=== PATIENT | male | born 1980 | race Caucasian/White ===

== ENCOUNTER 2016-09-05 18:46 | Emergency (ER) | payer MEDICARE, OTHER ==
--- OUTSIDE RECORDS SUMMARY | 2016-09-05 21:44 | XMS REPORT | Continuity of Care Document ---
:1980 Author Organization [facility] ([facility]) Address [address] [place] [address] Phone [phone] Care Team Providers Name Role Phone Emili Sullivan Primary Care Provider [phone] Source Comments This disclosure is being made pursuant to the Care Everywhere program, applicable federal and state laws, and may not contain all informaitonavailable regarding this patient.[facility] ([facility]) Active Allergies and Adverse Reactions Allergen Noted Date Severity Reactions Comments Cephalosporins 08/01/2011 Rash Ciprofloxacin Hcl 05/19/2011 Medium Rash One dose of cipro, total body mobiliform rash. Derm evaluated. Also some desaturations, unclear if associated with reaction vs other cause. Cotrim Double-Strength 09/18/2014 OTHER Unclear documentation - fevers, hypotension, diffuse erythema after received a 5 day course. Reaction occurred 1-2 h after administration of ertapenem and vancomycin. 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 Received 5 days of bactrim prior to and vancomycin 1 hour prior to (both bactrim and vancomycin had been given inpast). Furosemide 06/08/2013 Rash Haloperidol Dystonic reaction Penicillins 08/01/2011 Eosinophilia,Rash, Renal failure Vancomycin 09/18/2014 OTHER Unclear documentation - fevers, hypotension, diffuse erythema on day administered. Received 5 days of bactrim prior to and ertapenem 1 hour after. Current Medications Prescription Sig. Disp. Refills Start Date End Date Status LORazepam 2 mg/mL Take 0.5 mL (1 mg 30 mL 0 04/21/2016 Active solution total) by mouth 2 times daily. fluvoxaMINE 100 mg Take 3 tablets (300 90 tablet 0 04/22/2016 Active tablet mg total) by mouth daily. losartan 2.5 mg/mL Take 20 mL (50 mg 1800 mL 3 06/23/2016 Active suspension total) by mouth daily. paliperidone Inject 1.5 mL (234 mg 1 Syringe 11 07/30/2016 Active palmitate (INVEGA total) SUSTENNA) 234 intramuscularly every mg/1.5 mL injection month. 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 This duplication affects 2 known genes including adenylate cyclase activating polypeptide 1 (ADCYAP1, aka PACAP), which is a hypophysiotropic hormone that also functions as a neurotransmitter and neuromodulator. ADCYAP1 has been reported to be associated with a number of neuropsychiatric conditions as well as playing a role inmetabolism , body temperature regulation, and food intake (Franklin R et al, Mol Psychiatry.12(11):1026-32. 2007; Bhanu S J, et al J Pharmacol Sci.107(1):41- 48. 2008)." H/O necrotizing fasciitis 09/23/2013 Overview: Formatting of this note may be different from the original. 2008 - Necrotizing soft tissue infection to the left thigh and groin s/p thigh resection and skin grafting (see procedure notes 02/20/2009 and 03/16/2009) 12/04/10 - [facility] note has chronic lymphedema diagnosed. Encouraged compression stockings. Referred him to Dr. Mantilla of Plastic Surgery. Said, "He should continue on the lifelong suppressive antibiotic therapy." also made a referral to the [facility] for further management. bid oral penicillin, Augmentin 875 mg BID was used. 02/03/2011 - [facility] note: they thought he "would benefit from excision of the redundant soft tissue" Gave family time to think about this. 04/15/2011 - INFECTIOUS DISEASE note: Dr. Evelin sOeguera "recommended that the patient be treated with vancomycin, as well as an agent against Strep, such as penicillin, ampicillin, or cefazolin." and be admitted to he hospital for cellulitis w/ h/o methicillin-resistant Staphylococcus aureus and vancomycin-resistant enterococci. 04/2011 - admitted for possible cellulitis which turned out to be likely drug reaction to prophylactic antibiotics. Infectious disease determined no more antibiotics required at this time. 08/01/2011 - INFECTIOUS DISEASE consult note: saw him for possible pneumonia and scrotal pain. The later determined that he had (bilateral epididymitis seen on u/s). This more likely represents infec tions with gram positive organisms, including the scrotum. Current severity is mild based on exam. Would recommend continuing linezolid therapy. Pulmonary issues possibly due to hypersensitivity pneumonitis, per pulmonary consultants. 12/14/2013 - DERMATOLOGY consult note: Their physical exam was as follows: This is a well developed, obese male in no acute distress. Skin exam included the buttocks, legs, lower back and abdomen. - - There is a geometric, erythematous patch that extends from the superior portion of the buttocks, across the gluteal cleft, down to the proximal, medial posterior thighs. There are scattered hemorrha gic crusts within this patch and skin is quite xerotic -- There is a shallow erosion on the left proximal, posterior thigh. Impression: Contact dermatitis on buttocks and posterior proximal thighs, al lergic versus irritant and possibly due to toilet seat. Recommendations: 1. Clinical findings discussed with the patient and the primary team caring for him. 2. Start triamcinolone 0.1% cream on affec ketty skin twice daily for up to 14 days and then 2-3 days a week as needed. 3. Could make a cream or ointment, such as Aquaphilic or Vaseline available to patient to apply when skin is itchy or bothers ome 4. It is unclear whether contact dermatitis is allergic versus irritant but geographic nature of dermatitis makes contact with toilet seat most likely etiology. Further work-up could be considered , such as patch testing for skin allergies, if rash becomes a chronic problem. OCD (obsessive compulsive disorder) 09/07/2013 Autism spectrum disorder 01/29/2012 Overview: As a child he had delayed speech, repetite movements (rocking), significant social impairment which lead to a dx of ASD at age 6. 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 08/30/2015 Superficial skin infection 12/26/2014 02/23/2015 VIANCA (acute kidney injury) 09/22/2014 09/22/2014 Lymphedema of left leg 09/21/2014 03/02/2015 Lactic acid acidosis 09/15/2014 09/18/2014 Iatrogenic hypotension 09/15/2014 09/22/2014 Fever and chills 09/14/2014 09/18/2014 Left leg cellulitis 09/09/2014 09/22/2014 Diabetes mellitus type 2, diet-controlled 07/05/2014 04/14/2016 Overview: Glucose 10/06: 82 Skin ulcer of left calf, limited to breakdown of skin 06/06/2014 03/02/2015 Overview: History of recurrent cellulitis of left lower extremity Viral conjunctivitis 01/22/2014 07/03/2014 Influenza 06/21/2013 07/05/2014 Hypoxia 06/21/2013 06/22/2013 Elevated LFTs 06/21/2013 06/22/2013 Fatty liver 06/21/2013 07/05/2014 Hypoventilation associated with obesity 06/21/2013 07/05/2014 Shortness of breath 06/19/2013 06/22/2013 Pneumonia, organism unspecified 06/19/2013 06/21/2013 Hypoxemia 06/19/2013 06/22/2013 Agitation 01/28/2012 10/11/2012 Shortness of breath 08/11/2011 10/11/2012 Pervasive developmental disorder 08/06/2011 06/08/2013 Pneumonia 07/29/2011 10/11/2012 Hypoxia 07/29/2011 10/11/2012 Pulmonary edema 07/29/2011 10/11/2012 Orchitis and epididymitis 07/29/2011 07/05/2014 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 10/11/2012 Morbilliform rash 06/02/2011 10/11/2012 Obstructive sleep apnea (adult) (pediatric) 04/18/2011 10/11/2012 Cellulitis 05/19/2010 10/11/2012 Acute respiratory failure 02/25/2009 10/11/2012 Asperger's disorder 02/25/2009 01/29/2012 Renal dialysis 02/25/2009 10/11/2012 Necrotizing fasciitis 02/21/2009 10/11/2012 Seizure 02/21/2009 07/11/2014 Acute renal failure 02/21/2009 10/11/2012 Hyponatremia 02/21/2009 10/11/2012 Most Recent Encounters Date Type Specialty Providers Description 08/26/2016 Office Visit [facility] Mindi Garcia PA-C Chief Comp: Patient Reported Reason For Visit 08/22/2016 Office Visit [facility] Mindi Garcia PA-C Chief Comp: Patient Reported Reason For Visit 08/22/2016 Telephone Psychiatry Mindi Garcia PA-C Dx: Psychosis, unspecified psychosis type (Primary Dx) 08/01/2016 Office Visit Psychiatry Yosi Childs Jr., Chief Comp: Patient MD Reported Reason For Visit 08/01/2016 Office Visit [facility] Mindi Garcia PA-C Chief Comp: Patient Reported Reason For Visit 07/30/2016 Orders Only Psychiatry Mindi Garcia PA-C Dx: Psychosis, unspecified psychosis type (Primary Dx) 07/10/2016 Office Visit Psychiatry Gregorio Shi MD Dx: Autism spectrum disorder (Primary Dx) 07/10/2016 Office Visit [facility] Mindi Garcia PA-C Dx: Autism spectrum disorder (Primary Dx) 06/23/2016 Orders Only Psychiatry Mindi Garcia PA-C Dx: Essential hypertension (Primary Dx) Immunizations Name Dates Previously Given Next Due Influenza, quadrivalent PF 03/16/2015 Influenza, unspecified 03/29/2009 Novel Inluenza H1N1, unspecified 05/18/2009 Social History Tobacco Use Types Packs/Day Years Used Date Never Smoker Smokeless Tobacco: Never Used Tobacco Cessation:Counseling Given: Yes Comments: Alcohol Use Drinks/Week oz/Week Comments No Last Filed Vital Signs Vital Sign Reading Time Taken Blood Pressure 154/107 07/10/2016 1:34 PM [facility] Pulse 116 07/10/2016 1:34 PM [facility] Temperature 36.8 C (98.2 F) 04/21/2016 8:00 AM [facility] Respiratory Rate 16 04/21/2016 8:00 AM [facility] Height 1.778 m (5' 10") 04/27/2015 6:02 AM [facility] Weight 195.7 kg (431 lb 7 oz) 07/10/2016 1:33 PM [facility] Body Mass Index 61.91 07/10/2016 1:33 PM [facility] Oxygen Saturation 94% 04/21/2016 8:00 AM [facility] Plan of Care Patient Goal Type Goal Lifestyle Encourage healthy lifestyle Health Maintenance Due Date Last Done Comments Hepatitis B Vaccine (1 of 3 - 1980 Primary Series) Tdap Vaccine 1992 DIABETIC: Microalbumin 10/10/1999 MMR Vaccine 10/10/1999 Td Vaccine 10/10/1999 Varicella Vaccine (1 of 2 - 10/10/1999 Adult - No Evidence of Immunity) Pneumococcal Vaccine (1 of 1 2000 - PPSV23) DIABETIC: Foot Exam 11/05/2010 DIABETIC: Retinal Eye Exam 11/05/2010 DIABETIC: Hemoglobin A1C 08/13/2016 02/14/2016, Additional history exists 08/04/2015, 02/19/2015 DIABETIC: Cholesterol 02/13/2017 02/14/2016, Additional history exists 08/04/2015, 01/31/2015 Diabetic: Hdl 02/13/2017 02/14/2016, Additional history exists 08/04/2015, 01/31/2015 Diabetic: Ldl 02/13/2017 02/14/2016, Additional history exists 08/04/2015, 01/31/2015 DIABETIC: Triglycerides 02/13/2017 02/14/2016, Additional history exists 08/04/2015, 01/31/2015 Influenza Vaccine: Seasonal Completed 03/16/2015, 03/29/2009 Results from Last 3 Months Not on file
[2016-09-05] MEDS ORDERED: LORazepam 2 MG/ML DISP.SYRIN IM ONE (22:00)
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
[2016-09-05] MEDS ORDERED: LORazepam 2 MG/ML DISP.SYRIN ONE (22:09)
[2016-09-05 22:22] LABS: Hematocrit 41.7 % (42.0-52.0); Hemoglobin 13.7 gm/dL (13.5-18.0); Mean Cell Volume 82.9 fl (78-100); Mean Corpuscular Hemoglobin 27.2 pg (27-31); Mean Corpuscular Hgb Conc 32.9 g/dl (32-36); Mean Platelet Volume 10.4 fl (6.0-9.5); Neutrophil # 5.9 K/mm3 (1.3-6.0); Neutrophil % 65.5 % (42-75.0); Platelet Count 182 K/mm3 (150-450); Red Blood Count 5.03 M/mm3 (4.7-6.0)
[2016-09-05 22:46] LABS: ALT 36 U/L (19-67); AST 18 U/L (0-48); Alkaline Phosphatase * 64 U/L (50-170); Anion Gap 12.7 mmol/L (6.8-13.8); Bilirubin, Total 0.4 mg/dL (0.0-1.1); Blood Urea Nitrogen 17 mg/dL (6-23); Calcium * 8.2 mg/dL (7.9-10.9); Carbon Dioxide 27.3 mmol/L (24-32.6); Chloride 105 mmol/L (97-106); Glucose * 125 mg/dL (70-110); Salicylate Less than 2.8 mg/dL (2.8-20.0); Sodium 141 mmol/L (132-142); TSH * 2.623 uIU/mL (0.358-3.74); Total Protein 6.9 gm/dL (6.2-8.2)
[2016-09-05 22:48] LABS: Albumin * Less than 0.6 gm/dl (3.4-5.0); Ca. Corrected For Albumin 10.6 mg/dL (8.4-10.2)
[2016-09-05 23:06] LABS: Urine Bilirubin Negative (NEGATIVE); Urine Blood Negative /ul (NEGATIVE); Urine Ketone Negative (NEGATIVE); Urine Nitrite Negative (NEGATIVE); Urine Protein Negative (NEGATIVE); Urine Specific Gravity >=1.030 SP.GR. (1.005-1.030); Urine Urobilinogen Normal (NORMAL)
[2016-09-05 23:12] LABS: Cocaine Ur Negative (NEGATIVE); Urine Barbiturate Negative (NEGATIVE); Urine Opiates Negative (NEGATIVE); Urine PCP Negative (NEGATIVE); Urine THC Negative (NEGATIVE)
[2016-09-05 23:14] LABS: Urine Benzodiazepines Positive (NEGATIVE)
[2016-09-05 23:15] LABS: Urine Appearance Clear; Urine Color Yellow; Urine RBC 0-5 /hpf (0-5); Urine WBC 0-5 /hpf (0-5)
[2016-09-05 23:16] LABS: Urine Bacteria TRACE; Urine Mucus Many - 3+
[2016-09-06 05:50] VITALS: BP 138/84
== END 2016-09-06 09:21 | disposition home or self-care (01) ==
LOC: ER 18:46
DX: R46.89 Other symptoms and signs involving appearance and behavior (principal); F41.9 Anxiety disorder, unspecified; I10 Essential (primary) hypertension
CPT/HCPCS: 36415; 80053; 80307; 81001; 84443; 85025; 96372; 99284; G0480; G0481

== ENCOUNTER 2016-10-03 23:02 | Emergency (ER) | payer MEDICARE, OTHER ==
--- NOTE | 2016-10-03 23:18 | ERNOTE ---
<NaderNica - Last Filed: 10/04/16 06:19> Psychological HPI - General Chief Complaint: Psychiatric Problem Source: Reports: patient Exam Limitations: Reports: no limitations - Immun/Allergies/Home Medications Allergies/Adverse Reactions: Allergies Cephalosporins Allergy (Verified 10/03/16 23:11) ciprofloxacin [From Cipro] Allergy (Verified 10/03/16 23:11) ciprofloxacin HCl [From Cipro] Allergy (Verified 10/03/16 23:11) divalproex sodium [From Depakote] Allergy (Verified 10/03/16 23:11) ertapenem Allergy (Verified 10/03/16 23:11) furosemide Allergy (Verified 10/03/16 23:11) haloperidol [From Haldol] Allergy (Verified 10/03/16 23:11) haloperidol lactate [From Haldol] Allergy (Verified 10/03/16 23:11) Penicillins Allergy (Verified 10/03/16 23:11) vancomycin Allergy (Verified 10/03/16 23:11) Home Medications: HOME MEDICATIONS ALPRAZolam [Xanax] 2 mg PO TID PRN 09/05/16 [Last Taken Unknown] Losartan Potassium [Cozaar] 5 mg PO DAILY 09/05/16 [Last Taken Unknown] Paliperidone Palmitate [Invega Sustenna] 234 mg IM Q30D 09/05/16 [Last Taken Unknown] Citalopram Hydrobromide [Citalopram HBr] 20 mg PO DAILY 10/04/16 [Last Taken Unknown] Clonazepam 2 mg PO BID 10/04/16 [Last Taken Unknown] Oxybutynin Chloride [Ditropan Syrup] 5 mg PO BID 10/04/16 [Last Taken Unknown] lamoTRIgine [Lamictal] 25 mg PO BID 10/04/16 [Last Taken Unknown] - History of Present Illness Narrative: Patient presents to our facility stating that he feels that his house is poisoned, he is feeling paranoid. He has felt this way before. He asks to be "placed in a mental facility" denies any ideations to hurt himself others are present any danger to himself or others. Time Seen by Provider: 10/03/16 23:16 Review of Systems - Review of Systems Constitutional: Present: no symptoms reported EYE: Present: no symptoms reported ENT: Present: no symptoms reported Respiratory: Present: no symptoms reported Cardiology: Present: no symptoms reported Gastrointestinal/Abdominal: Present: no symptoms reported Genitourinary: Present: no symptoms reported Neurological: Present: no symptoms reported Psych: Present: other - patient has paranoid ideations he appears very anxious and worried. Believes his house is poisoned and he is not safe at home due to that. He voluntarily asks to be placed in a mental institution to be safe. - Patient's Past Medical History Patient History - Medical: Anxiety, Diabetes Type 2, Obesity, Other Patient History - Cardiac/Respiratory: Hypertension, Sleep Apnea Patient History - Cancer: No Hx of Cancer Patient History - Surgical Procedures: Other Patient History - Other: None - Social History Living Situations: home Abuse History: No History of abuse Psych History: Hx of Anxiety, Hx of Depression, Hx of Violent Behavior Smoking Status: Never smoker Have you smoked in the past 12 months: No Alcohol Use: none Drug Use: none - Immunizations Immunizations Up to Date: No History of Influenza Vaccine: No Physical Exam - Physical Exam General Appearance: Present: wd/wn, alert, no apparent distress - this patient is morbidly obese and he does appear somewhat anxious Ears, Nose, Throat: Present: normal ENT inspection Respiratory: Present: no respiratory distress, normal breath sounds, no accessory muscle use, chest nontender, lungs clear Cardiovascular/Chest: Present: regular rate, rhythm, no murmur, normal peripheral pulses Gastrointestinal/Abdominal: Present: normal bowel sounds, nontender, nondistended, soft, no organomegaly Extremity Exam: Present: normal inspection, normal range of motion ED Progress - Results and Orders Patient's Lab Results:: I have reviewed the patient's lab results. - Vital Signs Patient's Vital Signs:: I have reviewed the patient's vital signs. Vital Signs: Vital Signs 10/03/16 23:07 Temperature 36.4 C L Pulse Rate 120 H Respiratory 20 Rate Blood Pressure 160/118 O2 Sat by Pulse 98 Oximetry - EKG EKG: NSR - Progress/Reassessment Chief Complaint: Psychiatric Problem - Transfer of Care Physician Sign Out: Nica Doe Receiving Physician: Bridger Mendieta Pending Results: Physician/consult arrival - placement Departure Clinical Impression: Paranoid ideation, Anxiety - Departure Disposition: Home Follow Up Needed Condition: Good Instructions: Panic Attacks, [id number] Additional Instructions: FOLLOW UP WITH YOUR COUNSELOR OR DOCTOR ON THURSDAY. <Bridger Mendieta - Last Filed: 10/04/16 12:56> Psychological HPI - Date Date of Service: 10/04/16 ED Progress - Vital Signs Vital Signs: Vital Signs 10/04/16 11:58 Temperature 36.2 C L Pulse Rate 75 Respiratory 15 Rate Blood Pressure 136/83 O2 Sat by Pulse 95 Oximetry Plan - Plan Plan: MALA SAYS HE IS READY TO GO HOME NOW AND WILL FOLLOW UP WITH HIS DOCTORS ON THURSDAY. THERESE IS COMING TO SEE ANOTHER PT AND SAYS THEY PLAN ON GIVING HIM A RIDE HOME.
[2016-10-03 23:30] LABS: Hematocrit 43.5 % (42.0-52.0); Hemoglobin 14.6 gm/dL (13.5-18.0); Mean Cell Volume 82.9 fl (78-100); Mean Corpuscular Hemoglobin 27.8 pg (27-31); Mean Corpuscular Hgb Conc 33.6 g/dl (32-36); Mean Platelet Volume 10.6 fl (6.0-9.5); Neutrophil # 4.2 K/mm3 (1.3-6.0); Neutrophil % 74.9 % (42-75.0); Platelet Count 167 K/mm3 (150-450); Red Blood Count 5.25 M/mm3 (4.7-6.0); Red Cell Distribution Width 12.9 % (11.5-14.0); White Blood Count 5.6 K/mm3 (4.0-10.5)
[2016-10-03 23:47] LABS: Urine Bilirubin Negative (NEGATIVE); Urine Blood Negative /ul (NEGATIVE); Urine Ketone Negative (NEGATIVE); Urine Nitrite Negative (NEGATIVE); Urine Protein Negative (NEGATIVE); Urine Specific Gravity 1.025 SP.GR. (1.005-1.030); Urine Urobilinogen Normal (NORMAL)
[2016-10-03 23:53] LABS: Cocaine Ur Negative (NEGATIVE); Urine Barbiturate Negative (NEGATIVE); Urine Benzodiazepines Negative (NEGATIVE); Urine Opiates Negative (NEGATIVE); Urine PCP Negative (NEGATIVE); Urine THC Negative (NEGATIVE)
[2016-10-03 23:54] LABS: ALT 49 U/L (19-67); AST 25 U/L (0-48); Albumin * 3.4 gm/dl (3.4-5.0); Alkaline Phosphatase * 73 U/L (50-170); Anion Gap 16.1 mmol/L (6.8-13.8); BUN/Creatinine Ratio 13.5 (9.0-21.6); Bilirubin, Total 0.7 mg/dL (0.0-1.1); Blood Urea Nitrogen 21 mg/dL (6-23); Ca. Corrected For Albumin 8.8 mg/dL (8.4-10.2); Calcium * 8.6 mg/dL (7.9-10.9); Carbon Dioxide 24.8 mmol/L (24-32.6); Chloride 105 mmol/L (97-106); Glucose * 171 mg/dL (70-110); Potassium 3.9 mmol/L (3.4-4.6); Salicylate Less than 2.8 mg/dL (2.8-20.0); Sodium 142 mmol/L (132-142); TSH * 1.924 uIU/mL (0.358-3.74); Total Protein 6.4 gm/dL (6.2-8.2)
[2016-10-03 23:54] LABS: Urine Appearance Clear; Urine Color Yellow; Urine Hyaline Cast 0-5 /LPF; Urine Mucus Moderate - 2+; Urine RBC None Seen /hpf (0-5); Urine WBC None Seen /hpf (0-5)
[2016-10-03 23:55] LABS: Urine Bacteria TRACE
--- OUTSIDE RECORDS SUMMARY | 2016-10-04 02:15 | XMS REPORT | Continuity of Care Document ---
:1980 Author Organization [facility] ([facility]) Address [address] [place] [address] Phone [phone] Care Team Providers Name Role Phone Emili Sullivan Primary Care Provider [phone] Source Comments This disclosure is being made pursuant to the Care Everywhere program, applicable federal and state laws, and may not contain all informaitonavailable regarding this patient.[facility] ([facility]) Active Allergies and Adverse Reactions Allergen Noted [...] 2011; avoid future use of valproate per [facility] allergy/immunology service recommendations Ertapenem 09/18/2014 OTHER Unclear [...] 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 Encouraged compression stockings. Referred him to Dr. Mantilla of Plastic Surgery. Said, "He should continue on the lifelong suppressive antibiotic therapy." also made a referral to the [facility] for further management. bid oral penicillin, Augmentin 875 mg BID was used. 02/03/2011 - [facility] note: they thought he "would benefit from excision of the redundant soft tissue" Gave family time to think about this. 04/15/2011 - INFECTIOUS DISEASE note: Dr. Evelin Oseguera "recommended that the patient be treated with [...] Type Specialty Providers Description 08/26/2016 Office Visit [facility] Mindi Garcia PA-C Chief Comp: Patient Reported Reason For Visit 08/22/2016 Office Visit [facility] Mindi Garcia PA-C Chief Comp: Patient Reported Reason For Visit 08/22/2016 Telephone Psychiatry Mindi Garcia PA-C Dx: Psychosis, unspecified psychosis type (Primary Dx) 08/01/2016 Office Visit Psychiatry Yosi Childs Jr., Chief Comp: Patient MD Reported Reason For Visit 08/01/2016 Office Visit [facility] Mindi Garcia PA-C Chief Comp: Patient Reported Reason For Visit 07/30/2016 Orders Only Psychiatry Mindi Garcia PA-C Dx: Psychosis, unspecified psychosis type (Primary Dx) 07/10/2016 Office Visit Psychiatry Gregorio Shi MD Dx: Autism spectrum disorder (Primary Dx) 07/10/2016 Office Visit [facility] Mindi Garcia PA-C Dx: Autism spectrum disorder (Primary Dx) Immunizations Name Dates Previously Given Next Due Influenza, quadrivalent PF 03/16/2015 Influenza, unspecified 03/29/2009 Novel Inluenza H1N1, unspecified 05/18/2009 Social History Tobacco Use Types Packs/Day Years Used Date Never Smoker Smokeless Tobacco: Never Used Tobacco Cessation:Counseling Given: Yes Comments: Alcohol Use Drinks/Week oz/Week Comments No Last Filed Vital Signs Vital Sign Reading Time Taken Blood Pressure 154/107 07/10/2016 1:34 PM MOTOR VEHICLE EXAMINER Pulse 116 07/10/2016 1:34 PM MOTOR VEHICLE EXAMINER Temperature 36.8 C (98.2 F) 04/21/2016 8:00 AM MOTOR VEHICLE EXAMINER Respiratory Rate 16 04/21/2016 8:00 AM MOTOR VEHICLE EXAMINER Height 1.778 m (5' 10") 04/27/2015 6:02 AM MOTOR VEHICLE EXAMINER Weight 195.7 kg (431 lb 7 oz) 07/10/2016 1:33 PM MOTOR VEHICLE EXAMINER Body Mass Index 61.91 07/10/2016 1:33 PM MOTOR VEHICLE EXAMINER Oxygen Saturation 94% 04/21/2016 8:00 AM MOTOR VEHICLE EXAMINER Plan of Care Patient Goal Type Goal [...] 08/13/2016 02/14/2016, Additional history exists 08/04/2015, 02/19/2015 Influenza Vaccine: Seasonal 12/23/2016 03/16/2015, (Season Ended) 2009 DIABETIC: Cholesterol 02/13/2017 02/14/2016, Additional history exists 08/04/2015, 01/31/2015 Diabetic: Hdl 02/13/2017 02/14/2016, Additional history exists 08/04/2015, 01/31/2015 Diabetic: Ldl 02/13/2017 02/14/2016, Additional history exists 08/04/2015, 01/31/2015 DIABETIC: Triglycerides 02/13/2017 02/14/2016, Additional history exists 08/04/2015, 01/31/2015 Results from Last 3 Months Not on file
[2016-10-04 16:19] VITALS: BP 130/80
== END 2016-10-04 16:19 | disposition home or self-care (01) ==
LOC: ER 23:02
DX: F22 Delusional disorders (principal); F41.9 Anxiety disorder, unspecified
CPT/HCPCS: 36415; 80053; 80307; 81001; 84443; 85025; 93005; 99284; G0480; G0481

== ENCOUNTER 2016-10-12 22:26 | Emergency (ER) | payer MEDICARE, OTHER ==
[2016-10-12 23:14] LABS: Urine Bilirubin Negative (NEGATIVE); Urine Blood Negative /ul (NEGATIVE); Urine Ketone Negative (NEGATIVE); Urine Nitrite Negative (NEGATIVE); Urine Protein Negative (NEGATIVE); Urine Specific Gravity >=1.030 SP.GR. (1.005-1.030); Urine Urobilinogen Normal (NORMAL)
[2016-10-12 23:28] LABS: Urine Appearance Clear; Urine Bacteria 1+; Urine Color Dark Yellow; Urine Mucus Few - 1+; Urine RBC None Seen /hpf (0-5); Urine WBC None Seen /hpf (0-5)
--- OUTSIDE RECORDS SUMMARY | 2016-10-13 01:08 | XMS REPORT | Continuity of Care Document ---
:1980 Author Organization [facility] ([facility]) Address [address] [place] [address] Phone [phone] Care Team Providers Name Role Phone Emili Sullivan Primary Care Provider [phone] Source Comments This disclosure is being made pursuant to the Care Everywhere program, applicable federal and state laws, and may not contain all informaitonavailable regarding this patient.[facility] ([facility]) Active Allergies and Adverse Reactions Allergen [...] 2011; avoid future use of valproate per [facility] allergy/immunology service recommendations Ertapenem 09/18/2014 OTHER [...] 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 This duplication affects 2 known genes including [...] procedure notes 02/20/2009 and 03/16/2009) 12/04/10 - [facility] note has chronic lymphedema diagnosed. Encouraged compression stockings. Referred him to Dr. Mantilla of Plastic Surgery. Said, "He should continue on the lifelong suppressive antibiotic therapy." also made a referral to the [facility] for further management. bid oral penicillin, Augmentin 875 mg BID was used. 02/03/2011 - [facility] note: they thought he "would benefit [...] Type Specialty Providers Description 08/26/2016 Office Visit [facility] Mindi Garcia PA-C Chief Comp: Patient Reported Reason For Visit 08/22/2016 Office Visit [facility] Mindi Garcia PA-C Chief Comp: Patient Reported Reason For Visit 08/22/2016 Telephone Psychiatry Mindi Garcia PA-C Dx: Psychosis, unspecified psychosis type (Primary Dx) 08/01/2016 Office Visit Psychiatry Yosi Childs Jr., Chief Comp: Patient MD Reported Reason For Visit 08/01/2016 Office Visit [facility] Mindi Garcia PA-C Chief Comp: Patient Reported Reason For Visit 07/30/2016 Orders Only Psychiatry Mindi Garcia PA-C Dx: Psychosis, unspecified psychosis type (Primary Dx) Immunizations Name Dates Previously Given Next Due Influenza, quadrivalent PF 03/16/2015 Influenza, unspecified 03/29/2009 Novel Inluenza H1N1, unspecified 05/18/2009 Social History Tobacco Use Types Packs/Day Years Used Date Never Smoker Smokeless Tobacco: Never Used Tobacco Cessation:Counseling Given: Yes Comments: Alcohol Use Drinks/Week oz/Week Comments No Last Filed Vital Signs Vital Sign Reading Time Taken Blood Pressure 154/107 07/10/2016 1:34 PM SITE ENGINEER Pulse 116 07/10/2016 1:34 PM SITE ENGINEER Temperature 36.8 C (98.2 F) 04/21/2016 8:00 AM SITE ENGINEER Respiratory Rate 16 04/21/2016 8:00 AM SITE ENGINEER Height 1.778 m (5' 10") 04/27/2015 6:02 AM SITE ENGINEER Weight 195.7 kg (431 lb 7 oz) 07/10/2016 1:33 PM SITE ENGINEER Body Mass Index 61.91 07/10/2016 1:33 PM SITE ENGINEER Oxygen Saturation 94% 04/21/2016 8:00 AM SITE ENGINEER Plan of Care Patient Goal Type Goal [...]
[2016-10-13 01:22] VITALS: BP 116/74
--- NOTE | 2016-10-13 01:30 | ERNOTE ---
ER Male HPI Date of Service: 10/13/16 Stated Complaint: DEPRESSION Time Seen by Provider: 10/13/16 01:23 Source: patient Exam Limitations: clinical condition Immunizations: IMMUNIZATION HX Immunizations Up to Date No History of Influenza Vaccine No Allergies/Adverse Reactions: Allergies Cephalosporins Allergy (Verified 10/03/16 23:11) ciprofloxacin [From Cipro] Allergy (Verified 10/03/16 23:11) ciprofloxacin HCl [From Cipro] Allergy (Verified 10/03/16 23:11) divalproex sodium [From Depakote] Allergy (Verified 10/03/16 23:11) ertapenem Allergy (Verified 10/03/16 23:11) furosemide Allergy (Verified 10/03/16 23:11) haloperidol [From Haldol] Allergy (Verified 10/03/16 23:11) haloperidol lactate [From Haldol] Allergy (Verified 10/03/16 23:11) Penicillins Allergy (Verified 10/03/16 23:11) vancomycin Allergy (Verified 10/03/16 23:11) Home Medications: HOME MEDICATIONS ALPRAZolam [Xanax] 2 mg PO TID PRN 09/05/16 [Last Taken Unknown] Losartan Potassium [Cozaar] 5 mg PO DAILY 09/05/16 [Last Taken Unknown] Paliperidone Palmitate [Invega Sustenna] 234 mg IM Q30D 09/05/16 [Last Taken Unknown] Citalopram Hydrobromide [Citalopram HBr] 20 mg PO DAILY 10/04/16 [Last Taken Unknown] Clonazepam 2 mg PO BID 10/04/16 [Last Taken Unknown] Oxybutynin Chloride [Ditropan Syrup] 5 mg PO BID 10/04/16 [Last Taken Unknown] lamoTRIgine [Lamictal] 25 mg PO BID 10/04/16 [Last Taken Unknown] - History of Present Illness Narrative: PT IS AN AGGITATED SPECIAL NEEDS PSYCH PT WHO HAS BEEN REFUSING HIS MEDS AND SAYS HE NEEDS INPATIENT PSYCH. HE ALSO HAS A C/O OF URINARY FREQUENCY AND URGENCY. HE HAD MADE COMMENTS ABOUT KILLING HIMSELF BUT THEN ADMITS LATER THAT HE DOES NOT WANT TO HURT HIMSELF OR OTHERS BUT WANTS TO GET OUT OF THE LIVING SITUATION HE IS CURRENTLY LIMITED TO. I SAW HIM ABOUT A WEEK AGO WHEN PT TRANSFERRED TO ME BY ANOTHER DOCTOR WHEN HE WAS SAYING THE SAME THING ABOUT WANTING TO BE IN A PSYCH HOSPITAL AND C/O OF BELIVING THAT THE HOUSSE IN WHICH HE LIVES WITH OTHERS IS POISONED. AFTER A WHILE AND TALKING TO [employer] WORKER HE SAID HE WAS READY TO GO BACK. AT THAT TIME THERE WAS NO COMPLAINT THAT HE WAS NOT TAKING HIS MED.S HE IS HERE WITH A HEALTH WORKER FROM HIS JAIL JESSY. . Review of Systems - Review of Systems Constitutional: Present: See HPI EYE: Present: no symptoms reported ENT: Present: no symptoms reported Respiratory: Present: no symptoms reported Cardiology: Present: no symptoms reported Gastrointestinal/Abdominal: Present: no symptoms reported Genitourinary: Present: no symptoms reported Musculoskeletal: Present: no symptoms reported Skin: Present: no symptoms reported Neurological: Present: no symptoms reported Endocrine: Present: no symptoms reported Hematologic/Lymphatic: Present: no symptoms reported Psych: Present: anxiety, emotional problems, other - MANIPULATION. All Other Systems: All systems neg except as marked - Patient's Past Medical History Patient History - Medical: Anxiety, Diabetes Type 2, Obesity, Other Patient History - Cardiac/Respiratory: Hypertension, Sleep Apnea Patient History - Cancer: No Hx of Cancer Patient History - Surgical Procedures: Other Patient History - Other: None - Social History Living Situations: home Abuse History: No History of abuse Psych History: Hx of Anxiety, Hx of Depression, Hx of Violent Behavior Smoking Status: Never smoker Alcohol Use: none Drug Use: none - Immunizations Immunizations Up to Date: No History of Influenza Vaccine: No Physical Exam - Physical Exam General Appearance: Present: wd/wn, alert, no apparent distress - VERY OBESE CONVERSANT ,CRUDELY MANIPULATIVE YOUNG MAN. A & O Eye Exam: Normal inspection: bilateral, PERRL: bilateral, EOMI: bilateral Ears, Nose, Throat: Present: normal ENT inspection Respiratory: Present: no respiratory distress, normal breath sounds, no accessory muscle use, chest nontender, lungs clear Cardiovascular/Chest: Present: regular rate, rhythm, no murmur, normal peripheral pulses Gastrointestinal/Abdominal: Present: normal bowel sounds, nontender, soft, no organomegaly Back Exam: Present: normal inspection Extremity Exam: Present: normal inspection Neurological Exam: Present: alert, oriented Skin Exam: Present: normal color, warm/dry ED Progress - Results and Orders Patient's Lab Results:: I have reviewed the patient's lab results. Results and Orders: UA S.G. =1.030 WITH 1 + BACT BUT NO WBC OR RBC. - Vital Signs Patient's Vital Signs:: I have reviewed the patient's vital signs. Vital Signs: Vital Signs 10/12/16 10/13/16 22:27 01:22 Temperature 38.0 C H 36.6 C Pulse Rate 74 64 Respiratory 16 18 Rate Blood Pressure 153/81 116/74 O2 Sat by Pulse 95 98 Oximetry - Progress/Reassessment Chief Complaint: Genitourinary Problem Departure Clinical Impression: Anxiety - Departure Disposition: Home Follow Up Needed Condition: Good Instructions: Panic Attacks, [id number] Additional Instructions: YOU NEED TO RECHECK WITH HIS MENTAL HEALTH CAREGIVER TOMORROW AND HE NEEDS TO GET BACK ON HIS MEDICATIONS.
== END 2016-10-13 03:23 | disposition home or self-care (01) ==
LOC: ER 22:26
DX: F41.1 Generalized anxiety disorder (principal)